=== PATIENT | female | born 1955 | race Caucasian/White ===

== ENCOUNTER 2020-06-13 18:07 | Emergency (ER) | payer MEDICARE ==
[~2020-06-13] VITALS: Ht 167.6 cm; Wt 75.3 kg
[~2020-06-13 18:07] MED LIST: APIDRA SOL100 UNIT/1 SUBQ; CENTRUM SILVER1 EAC4; CIPRO250 M1 PO; CIPRO500 MG PO; FISH OIL 1,001000 M2 PO; LEVEMIR SUBQ; LISINOPRIL10 MG PO; MACROBID 100 M100 M2 PO; ONDANSETRON HCL4 M2 PO
[2020-06-13 19:41] LABS: ABSOLUTE LYMPHOCYTES 0.5 thou/uL (0.8-5.3); ABSOLUTE MONOCYTES 0.4 thou/uL (0.0-1.2); ABSOLUTE NEUTROPHILS 2.7 thou/uL (1.6-8.1); BASOPHILS 0.7 %; EOSINOPHILS 1.1 %; HEMATOCRIT 38.7 % (37.0-47.0); LYMPHOCYTES 12.5 %; MCH 30.3 pg (26.0-34.0); MCHC 33.6 g/dL (28.0-37.0); MCV 90.3 fL (80.0-100.0); MONOCYTES 11.4 %; MPV 8.1 fl. (7.2-11.1); NUCLEATED RBCS 0 /100WBC; PLATELET COUNT* 135 thou/uL (150-400); POLYS 74.3 %; RBC 4.28 mil/uL (4.20-5.00); RDW-CV 16.9 % (10.5-14.5); WBC 3.6 thou/uL (4.0-11.0)
[2020-06-13 19:53] LABS: CREATININE 1.7 mg/dL (0.6-1.3); POTASSIUM 3.6 mmol/L (3.5-5.1)
[2020-06-13 19:54] LABS: ALBUMIN 3.6 g/dL (3.4-5.0); MAGNESIUM 2.1 mg/dL (1.8-2.4); TOTAL BILIRUBIN 0.9 mg/dL (<0.1-1.0); TOTAL PROTEIN 6.9 g/dL (6.4-8.2)
[2020-06-13 21:05] LABS: BE -13.6 mmol/L (-2 to +3); PCO2 26.5 mmHg (35.0-45.0); PO2 98.1 mmHg (75.0-100.0)
[2020-06-13 21:06] LABS: pH 7.266 (7.340-7.450)
[2020-06-13 21:21] LABS: URINE BILIRUBIN NEGATIVE (Negative); URINE BLOOD NEGATIVE (Negative); URINE CLARITY CLEAR; URINE COLOR YELLOW; URINE GLUCOSE-RANDOM NEGATIVE (Negative); URINE KETONES 3+ (Negative); URINE LEUKOCYTES-REFLEX NEGATIVE (Negative); URINE NITRITE-REFLEX NEGATIVE (Negative); URINE PROTEIN TRACE (Negative); URINE UROBILINOGEN 0.2 E.U./dl (0.2-1.0)
[2020-06-13 22:40] VITALS: BP 100/55
--- NOTE | 2020-06-14 09:49 | EKG ---
[place] [address] ELECTROCARDIOGRAM REPORT Name: MILDRED JANE Room: [facility]#: [id number] Admission: 06/13/20 Attend Phys: Discharge: 06/13/20 Date of : 51 Date of Service: 06/13/201850 Report #: [id number] THIS REPORT FOR: //name// [facility] ED Test Date: 2020-06-13 Test Time: 18:51:06 Pat Name: MILDRED JANE Department: Room: Gender: F Bung Dropper: NIKKI : 1955 Requested By: Juan Pablo Concepcion Order Number: [id number] MD: Gaurav Ortiz Measurements Intervals [place] Rate: 69 P: 69 [place]: 150 QRS: 72 QRSD: 82 T: 62 QT: 403 QTc: 432 Interpretive Statements Sinus rhythm Compared to ECG 02/26/2014 01:25:14 No significant changes Electronically Signed On 06-14-2020 9:48:45 CDT by Gaurav Ortiz [email or web address] <ELECTRONICALLY SIGNED> By: Gaurav Ortiz MD, [facility] 06/14/20 0948 50 50 Gaurav Ortiz MD, [facility] /EPI
[2020-06-15 02:06] LABS: GLYCOHEMOGLOBIN (HGB A1C) 13.9 % (4.8-5.6)
== END 2020-06-13 22:40 | disposition short-term general hospital (02) ==
LOC: M.ERS 18:07
PROVIDERS: Personal Emergency Response Attendant; Physician Assistant
DX: E11.10 Type 2 diabetes mellitus with ketoacidosis without coma (principal); Z20.828 Contact with and (suspected) exposure to other viral communicable diseases; I10 Essential (primary) hypertension; Z98.890 Other specified postprocedural states; Z87.891 Personal history of nicotine dependence